=== PATIENT | male | born 1955 | race Caucasian/White ===

== ENCOUNTER 2019-12-01 08:00 | Outpatient (RCR) | payer MEDICAID, SELFPAY ==
--- NOTE | 2019-11-22 15:01 | MHC.PT.OD ---
[facility] [place] [facility] [place] [facility] [place] [facility] [address] [place] [address] [phone] F: [phone] F: [phone] F: [phone] F: [phone] Physical Therapy Daily Note Diagnosis: Date of Surgery: NA Date of Evaluation: 10/07/19 Treatments to Date: 10 Cancellations to Date: 2 No Shows to Date: 1 Authorized Visits: 20 Insurance End Date: 09/22/20 Precautions/ Contraindications:PMHx: DM Medications: shingrix, freestyle lite meter, lancets and test strips, glipzide, metformin, ibprofen, cyclobenzaprine HCL, flexeril, advil Subjective: Patient reporting that he is feeling better today. He reports some sciatic pain on the L buttock but this had improved. His neck and lumbar symptoms are feeling better with only a little discomfort. He continues to feel better in flexion. Pain Score: 4 Pain Location: Lumbar central Objective Flowsheet: Tests & Measures Exercises Stepper: 10 mins, hills 3.0, seat #15 and arms #4 Standing: RTB rows with core stab and hip hinge for lumbar spine, ed on cuing to decrease elevation of upper traps 3x10 Standing: Functional squatting, UE support at EOM 3x10 Seated: Seated PB roll outs for lumbar flexion 3x10 Seated: pulleys for shoulder flexion (performed after stepper as he reported arm movements on the stepper irritated his upper back and neck) x3 mins Supine: Hip abduction 5 sec holds- mod vc/tc to reduce valsalva tendencies 1x15 Supine: HL core stab w alt LEs/UEs (dying bug) 1x15 Side lying: B clamshells 1x15 IASTM #9 along lumbar/thoracic paraspinals scanning and fanning Ed and applied I strips TET to thoracolumbar paraspinals MM for tissue ease and postural feedback, skin integ and light touch WNL. Modalities Assessment: Patient has been slow to progress. Continues to require cuing for form throughout the session for proper posture, exercise form and sets/reps. Does appear to be getting better with PT. EVAL: Examination reveals consistent pain that ranges from about 6/10 to a 10/10 with increased activity or prolonged positioning, TTP over lumbar spine L2-4, pain with trunk ROM and hamstring length, decreased muscle strength at core /back, altered posture and gait. He is independent with all ADLS but has some pain. 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 He reports cervical roll from chiro but is not currently doing any exercises. He is a good candidate for PT based on age, goals, physical impairments and functional limitations. He would benefit from therapy to decrease pain, improve ROM, increase muscle strength, postural correction and functional training. Plan is to focus on lower back for first 7 visits, reassess and plan to tx the upper back, neck and arm. PT Plan: Ther-ex for ROM and strengthening, functional training - cervical and lumbar depending on how he feels Discharge Today? 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
== END 2019-12-28 10:41 | disposition home or self-care (01) ==
LOC: HO.PTCHIC 08:00
PROVIDERS: PCP Internal Medicine; Visit Provider Internal Medicine
DX: M54.42 Lumbago with sciatica, left side (principal)
CPT/HCPCS: 97110; 97140

== ENCOUNTER 2019-12-28 07:32 | Day surgery (SDC) | payer MEDICAID, SELFPAY ==
[2019-12-23 15:49] VITALS: BMI 28.4
--- NOTE | 2019-12-27 12:42 | HO.ANESPROP2 ---
Documented by User: Shivani Velázquez 12/27/19 12:44 HPI - Anesthesia Eval Consult details Narrative: 64yo M for Colonoscopy [facility] Past Medical History Medical History Back pain Diabetes Social History Social History Alcohol intake: former Smoking Status: Never smoker Use of substances other than those prescribed or required for medical reasons: No Advance Directives: No Advance Directives Information Provided: No Advance Directives on File: No Meds Allergies Allergy/AdvReac Type Severity Reaction Status Date / Time No Known Allergies Allergy Verified 12/23/19 15:41 [No Known Allergies*] Home Medications Medication Instructions Recorded Confirmed Type aspirin [Aspir-81] 81 mg PO DAILY 12/23/19 12/23/19 History glipizide 5 mg PO DAILY 12/23/19 12/23/19 History metformin 1,000 mg PO DAILY 12/23/19 12/23/19 History Exam Exam Date and Time: December 27, 2019 1242 Height,Weight and Vital Signs: Height 5 ft 6 in Weight 79.832 kg Pertinent Lab Results Pertinent Lab Results: Laboratory Tests 11/14/19 11/14/19 20:33 20:33 WBC 7.8 Hgb 14.7 Hct 43.0 Plt Count 245 Sodium 140 Potassium 4.1 Chloride 105 BUN 21 H Creatinine 0.92 Assessment and Plan Assessment Anesthesia Assessment: Chart Reviewed Documented by User: Freda Latham 12/28/19 08:13 [facility] Past Medical History Medical History Back pain Diabetes Social History Social History Alcohol intake: former Smoking Status: Never smoker Use of substances other than those prescribed or required for medical reasons: No Advance Directives: No Advance Directives Information Provided: No Advance Directives on File: No Meds Allergies Allergy/AdvReac Type Severity Reaction Status Date / Time No Known Allergies Allergy Verified 12/23/19 15:41 [No Known Allergies*] Home Medications Medication Instructions Recorded Confirmed Type aspirin [Aspir-81] 81 mg PO DAILY 12/23/19 12/23/19 History glipizide 5 mg PO DAILY 12/23/19 12/23/19 History metformin 1,000 mg PO DAILY 12/23/19 12/23/19 History Exam Airway Mallampati Class: II TM Dist: >3cm Neck ROM: Full Assessment and Plan Assessment Anesthesia Assessment: Anesthesia Plan Discussed and Chart Reviewed Final Anesthetic Review NPO: Yes ASA Class: II Final Preanesthetic Review: No Changes in Pt Med Stat, Meds/Allgs Chart Reviewed, Consent Obtained/Reviewed and Anes Risks/Benef Reviewed Patient Risk: Low Procedure Risk: Low Assessment/Block/Sedation in SS: Assess/Block/Sedation-SS Anesthetic Plan Anesthetic Plan: GA Disposition: Standard PACU
[2019-12-28 07:51] LABS: Glucose, Whole Blood 148 mg/dL (60-115)
[2019-12-28 07:52] VITALS: BP 148/83; PULSE 86; RESP 16; TEMP 36.5; O2SAT 96
[2019-12-28] MEDS: Lactated Ringers 1,000 ML 100 ML IVCONT (08:08)
--- NOTE | 2019-12-28 08:43 | P.HPSUR_ITS ---
Pre-Procedural Eval Section B Chief Complaint: SCREENING Relevant Family History (Specify if Yes): No Relevant Social History: None Present Medications: see Short Stay Collaborative assessment Medical History: Significant History (DM) History of Previous Operations: No relevant previous surgery Allergies: Allergies Allergy/AdvReac Type Severity Reaction Status Date / Time No Known Allergies Allergy Verified 12/23/19 15:41 [No Known Allergies*] Review of Systems Sugical H&P ROS: Negative: Constitution, Cardiovascular, Respiratory, Neurological, Psychiatric, Hem-Onc, Allergic/Immunologic, Gastrointestinal, Genitourinary, Musculoskeletal, Integumentary, Endocrine and Eyes/E ars/Nose/Throat Exam Surgical H&P Exam: Normal: HEENT, Normal: Heart, Normal: Lungs, Normal: Extremities, Normal: Abdomen, Normal: Skin and Normal: Neurological Plan Diagnosis/Plan: Unchanged Patient has been examined and remains a candidate for the planned procedure
--- NOTE | 2019-12-28 08:53 | P.OP_ITS ---
Operative Note Operative Note Narrative: Operative Information Procedure Description: Colonoscopy COLONOSCOPY Instrument: Olympus variable stiffness pediatric scope 190L Colonoscopy Monitoring: Vital signs and clinical assessment, continuous EKG monitoring, Pulse oximetry, Carbon Dioxide monitoring and blood pressure monitoring were done throughout the procedure. Colon withdrawal time was 8 minutes. Procedure: The patient was placed in the left lateral decubitis position and pre-procedure medications were administered. After a digital rectal examination of the ano-rectum, the video colonoscope was inserted into the rectum and advanced through the colon to the cecum/TI. The colonoscope was slowly withdrawn in a retrograde panoramic fashion and the colon mucosa was carefully examined including a retroflexed view of the rectum. Findings and interventions are described below. Procedure Difficulty:easy Findings: Terminal Ileum-normal Cecum:normal Ascending Colon: normal Transverse Colon -normal Descending Colon:normal Sigmoid Colon: normal Rectum: Retroflexion with moderate sized internal hemorrhoids, grade II Anorectum - internal hemorrhoids seen at anal verge Colon preparation: [place] Bowel Preparation Scale Right colon; 2 Transverse colon: 3 Left colon; 3 (0 = Unprepared colon segment with mucosa not seen due to solid stool that cannot be cleared. 1 = Portion of mucosa of the colon segment seen, but other areas of the colon segment not well seen due to staining, residual stool and/or opaque liquid. 2 = Minor amount of residual staining, small fragments of stool and/or opaque liquid, but mucosa of colon segment seen well. 3 = Entire mucosa of colon segment seen well with no residual staining, small fragments of stool or opaque liquid) Impression and Post Procedure Diagnosis: internal hemorrhoids Plan: High fiber diet leaflet Avoid straining at stool, epsom salts and sitz bath prn, anusol supps or cream prn Repeat Colonoscopy in 10 years or earlier if clinically indicated Above findings were reviewed with the patient and relevant handouts were provided if indicated.
--- NOTE | 2019-12-28 08:53 | PM.OP ---
Brief Operative Note Date of procedure: 12/28/19 Pre-op diagnosis: colon screen Post-op diagnosis: same Procedure: see op note Surgeon: Joann Torres MD Anesthesia: MAC Estimated blood loss (mL): 0 Condition: stable Disposition: PACU
[2019-12-28 09:20] VITALS: BP 97/68; PULSE 87; RESP 16; TEMP 36.5; O2SAT 98
[2019-12-28 09:35] VITALS: BP 112/75; PULSE 80; RESP 18; TEMP 36.5; O2SAT 96
--- NOTE | 2019-12-28 10:00 | HO.POSTANES ---
Post Anesthesia Evaluation Post Anesthesia Evaluation Vital Signs: Vital Signs Temp Pulse Resp BP Pulse Ox 12/28/19 09:35 97.7 F 80 18 112/75 96 12/28/19 09:20 97.7 F 87 16 97/68 98 12/28/19 07:52 97.7 F 86 16 148/83 H 96 Anesthesia: General (tiva) Mental Status: Awake Pain Control: Satisfactory Nausea/Vomiting: None Hydration: Adequate Anesthesia-Related Issues: No Anes. Related Issues
== END 2019-12-28 10:08 | disposition home or self-care (01) ==
PROVIDERS: PCP Internal Medicine; Visit Provider Internal Medicine Gastroenterology
PROC: 0DJD8ZZ Inspection of Lower Intestinal Tract, Via Natural or Artificial Opening Endoscopic (ICD-10-PCS; CPT 45378; principal; 2019-12-28 13:40)
DX: Z12.11 Encounter for screening for malignant neoplasm of colon (principal); K64.1 Second degree hemorrhoids; E11.9 Type 2 diabetes mellitus without complications; Z79.84 Long term (current) use of oral hypoglycemic drugs; Z79.82 Long term (current) use of aspirin
CPT/HCPCS: 45378; 82947

== ENCOUNTER → 2020-01-30 10:52 | Outpatient (BNVA) | payer MEDICAID, SELFPAY | PROVIDERS: PCP Internal Medicine; Referring Provider Internal Medicine; Visit Provider Physician Assistant | DX: Z76.89 Persons encountering health services in other specified circumstances (principal) ==

== ENCOUNTER 2020-03-03 06:22 | Emergency (ER) | payer MEDICAID, SELFPAY ==
[2020-03-03 06:29] VITALS: BP 138/87; PULSE 95; RESP 16; TEMP 37.1; O2SAT 97; BMI 29.2
--- NOTE | 2020-03-03 08:06 | XR_ITS ---
EXAMINATION: XR CHEST CLINICAL INFORMATION: Back pain COMPARISON: Previous chest x-ray October 2019 TECHNIQUE: 2 views of the chest were obtained. FINDINGS: No significant abnormality is noted involving the heart, lungs, mediastinum, bony thorax or soft tissues. XR/XR chest 2V IMPRESSION: Unremarkable examination.
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
--- NOTE | 2020-03-03 08:13 | PC.NURSE ---
Plan for lab results and xray, however pain appears chronic in nature, pt reports pain is worse than normal but worse with movement and twisting and moving right arm.
[2020-03-03 08:16] LABS: MANUAL DIFF FLAG NO
[2020-03-03 08:18] LABS: Basophils Absolute Auto 0.1 X10*3/uL (0.0-0.2); Basophils Percent Auto 0.5 % (0-2); Eosinophils Absolute Auto 0.4 X10*3/uL (0.0-0.4); Eosinophils Percent Auto 4.3 % (0-4); Hematocrit 45.4 % (42-52); Hemoglobin 15.6 g/dl (14.0-18.0); Imm Gran Abs Auto 0.03 X10*3/uL (0.00-0.03); Imm Gran Pct Auto 0.3 % (0.0-0.4); Lymphocytes Absolute Auto 1.7 X10*3/uL (1.2-4.9); Lymphocytes Percent Auto 17.4 % (20-40); Mean Corpuscular HGB Conc 34.4 g/dl (31.0-36.0); Mean Corpuscular Hemoglobin 30.6 pg (27.0-33.0); Mean Corpuscular Volume 89.2 fL (80-98); Monocytes Absolute Auto 0.9 X10*3/uL (0.1-1.2); Monocytes Percent Auto 9.4 % (2-11); Neutrophils Absolute Auto 6.8 X10*3/uL (2.0-8.3); Neutrophils Percent Auto 68.1 % (45-73); Platelet Count 230 X10*3/uL (160-400); Red Blood Count 5.09 X10*6/uL (4.60-5.80); Red Cell Distribution Width 11.6 % (11.0-16.0)
[2020-03-03 08:33] LABS: D Dimer < 200 NG/ML
[2020-03-03 08:45] LABS: Anion Gap 14 (12-20); Blood Urea Nitrogen 30 mg/dL (9-16); Carbon Dioxide 25 mmol/L (22-29); Chloride 103 mmol/L (96-108); Creatinine Clr Calc Pharmacy 66.1; Estimated Glomerular Filt Rate > 60; Glucose Random 189 mg/dL (60-115); Potassium 4.2 mmol/l (3.3-5.1); Sodium 138 mmol/L (135-145)
== END 2020-03-03 09:30 | disposition home or self-care (01) ==
PROVIDERS: Emergency Provider Emergency Medicine Emergency Medical Services; PCP Internal Medicine
DX: M54.6 Pain in thoracic spine (principal); M25.511 Pain in right shoulder; R05 Cough; Z79.899 Other long term (current) drug therapy
CPT/HCPCS: 36415; 71046; 80048; 85025; 85379; 99283; 99284

== ENCOUNTER 2020-03-06 08:35 | Outpatient (REF) | payer MEDICAID, SELFPAY ==
--- NOTE | 2020-03-06 08:37 | MR_ITS ---
EXAMINATION: MR LUMBAR SPINE WITHOUT CONTRAST CLINICAL INFORMATION: Lumbago with sciatica, left-sided. COMPARISON: Plain films of the lumbar spine 09/06/2019. TECHNIQUE: MRI of the lumbar spine was obtained using routine sequences without contrast. FINDINGS: VERTEBRAL BODIES AND PARASPINAL STRUCTURES: There is a levoscoliosis. There is narrowing of intervertebral disc height at L4-L5, and there are mild degenerative endplate contour changes with predominantly fatty signal centrally and toward the right. Vertebral body heights are maintained. No fractures are demonstrated. Overall, marrow signal is homogenous. The infrarenal abdominal aorta is slightly tortuous. No aneurysms are demonstrated. The visualized pelvic structures are unremarkable. CONUS MEDULLARIS AND CAUDA EQUINA: Normal, terminating at the level of L1. The lower thoracic spinal cord appears normal. The cauda equina nerve roots and filum terminale appear normal. SPINAL LEVELS: L1-L2: The facet joints appear normal bilaterally. Disc contour is normal. There is no central stenosis or foraminal narrowing. L2-L3: There is mild bilateral facet arthropathy with ligamenta flava hypertrophy. There is an equivocal 3 cm synovial cyst developing anteromedially on the left which measures 3.5 mm (image 9/26, sequence 6); there is no distortion of the thecal sac at present. There is a diffuse disc bulge. There is no foraminal nerve root impingement. There is mild narrowing of the subarticular recesses. There is no central stenosis. L3-L4: There is moderate bilateral facet arthropathy with ligamenta flava hypertrophy and small facet joint effusions. There is a synovial cyst dorsal to the right facet joint. There is a mild diffuse disc bulge, with a left foraminal disc protrusion extending far laterally with impingement on the extraforaminal left L3 nerve root. There is no central stenosis. L4-L5: There is moderate bilateral facet arthropathy with right greater than left ligamentum flavum hypertrophy. There is a broad-based posterior disc protrusion extending into the neural foramina bilaterally, more prominently on the right and there is impingement on the exiting right L4 nerve root. There is mild impingement on the exiting left L4 nerve root inferiorly. There is narrowing of the right greater than left subarticular recesses with impingement traversing L5 nerve roots. There is moderate central stenosis. L5-S1: There is mild bilateral facet arthropathy. There is a small posterior disc protrusion with minimal distortion of the ventral thecal sac. The neural foramina are patent. There is no central stenosis. MR/MR lumbar spine wo con IMPRESSION: 1. At L4-L5 there is moderate facet arthropathy and there is a broad-based posterior disc protrusion, more prominent on the right with impingement on the exiting right L4 nerve root. There is narrowing of the right greater than left subarticular recesses with impingement on the traversing L5 nerve roots. There is moderate central stenosis. 2. At L3-L4 there is facet arthropathy and there is a diffuse disc bulge, with a left foraminal disc protrusion extending far laterally. There is impingement on the extraforaminal left L3 nerve root. 3. At L2-L3 there is an equivocal synovial cyst developing anteromedially on the left, without significant mass effect at present. There is mild narrowing of the subarticular recesses.
== END 2020-03-06 08:36 | disposition home or self-care (01) ==
LOC: HO.MRI 08:35
PROVIDERS: Visit Provider Internal Medicine
DX: M54.42 Lumbago with sciatica, left side (principal)
CPT/HCPCS: 72148

== ENCOUNTER 2020-08-07 10:00 | Outpatient (RCR) | payer MEDICAID, SELFPAY | END 2020-09-07 15:02 | disposition home or self-care (01) | LOC: HO.PT 10:00 | PROVIDERS: PCP Internal Medicine; Visit Provider Internal Medicine | DX: M54.42 Lumbago with sciatica, left side (principal) | CPT/HCPCS: 97014; 97110; 97112; 97140; 97161; 97530 ==

== ENCOUNTER 2020-10-05 07:40 | Outpatient (REF) | payer MEDICAID, SELFPAY ==
--- NOTE | ~2020-10-05 | XR_ITS ---
EXAMINATION: XR CERVICAL SPINE CLINICAL INFORMATION: Pain left shoulder. COMPARISON: None TECHNIQUE: 6 views of the cervical spine, inclusive of flexion and extension views, were obtained. FINDINGS: There is mild stranding of cervical lordosis. The vertebral heights and alignment is normal. There is loss of C5-C6, C6-C7 disc heights with moderate ventral spondylosis no visible acute fracture, dislocation or lytic process seen. The paravertebral vertebral soft tissues are normal. There is mild narrowing of right C5-C6 and C6-C7 neural foramina from uncovertebral hypertrophic changes. The prevertebral soft tissues are normal. XR/XR cervical spine 5V IMPRESSION: Degenerative disc changes with moderate ventral spondylosis C5-C6 and C6-C7 disc levels.
== END 2020-10-05 07:41 | disposition home or self-care (01) ==
LOC: HO.XRAY 07:40
PROVIDERS: PCP Internal Medicine; Visit Provider Internal Medicine
DX: M25.512 Pain in left shoulder (principal)
CPT/HCPCS: 72050

== ENCOUNTER 2020-10-16 20:18 | Emergency (ER) | payer MEDICAID, SELFPAY ==
--- NOTE | ~2020-10-16 | CT_ITS ---
EXAMINATION: CT CERVICAL SPINE WITHOUT CONTRAST CLINICAL INFORMATION: Left-sided pain COMPARISON: Radiographs 10/05/2020 TECHNIQUE: Multidetector CT scan of cervical spine with multiplanar reconstructions This CT examination was performed using dose optimization techniques as appropriate, variously including the following: *Automated exposure control *Adjustment of mA and/or kV according to patient size (this includes techniques or standardized protocols for targeted exams where dose is matched to indication/reason for exam; i.e. extremities or head) *Use of iterative reconstruction technique DLP: 565 mGy-cm FINDINGS: Reversal of the normal cervical lordosis again noted. No prevertebral soft tissue swelling. Mildly severe spondylosis minimal lower cervical spine. No acute fracture subluxation. Spinal levels: C2-C3: Minor posterior annular disc bulging. C3-C4: More pronounced posterior disc bulging resulting in early central canal narrowing C4-C5: Suspect more pronounced asymmetric disc bulging/herniation resulting in moderate central canal narrowing and pronounced right-sided neuroforaminal stenosis. C5-C6: More pronounced disc aspect complex asymmetric to the right with early disc space narrowing resulting in relative pronounced right-sided neuroforaminal stenosis and moderate central canal narrowing. C6-C7: Similar degree of disc space narrowing with more pronounced right greater than left foraminal disc osteophyte complexes resulting in relatively pronounced neuroforaminal stenosis and mild central canal narrowing. C7-T1: Normal. CT/CT cervical spine wo con IMPRESSION: Advanced spondylosis as above. Recommend MRI for further detail assessment of the disc disease and resulting central and neuroforaminal stenosis..
[2020-10-16 20:32] VITALS: BP 143/86; PULSE 80; RESP 16; TEMP 36.6; O2SAT 98; BMI 27.7
--- NOTE | 2020-10-16 21:56 | ECG_ITS ---
Test Reason : BACK PAIN Blood Pressure : / mmHG Vent. Rate : 061 BPM Atrial Rate : 061 BPM P-R Int : 160 ms QRS Dur : 082 ms QT Int : 412 ms P-R-T Axes : 057 074 063 degrees QTc Int : 414 ms Normal sinus rhythm Normal ECG When compared with ECG of 14-NOV-2019 20:27, No significant change was found Referred By: Stella Tiwari Electronically Signed By:LAUREN GONZALEZ
--- NOTE | 2020-10-16 22:15 | ED.BACK ---
HPI - Back Pain/Injury General Chief Complaint: Back Pain/Injury Stated Complaint: back pain Time Seen by Provider: 10/16/20 21:56 Source: patient Mode of arrival: ambulatory History of Present Illness HPI Narrative: 65-year-old male with a past medical history of back pain, diabetes, presenting to the ED complaining of left-sided neck pain radiating down left arm times months with associated tingling/paresthesias. Admits pain worse with movement of head/neck and arm. Admits pain improves with Motrin. Reports has been evaluated for this pain had negative x-rays. Admits pain radiate to jaw today. Denies visual change/loss, headache, weakness, CP/SOB, nausea/vomiting, trauma/fall or injury, headache Related Data Home Medications Medication Instructions Recorded Confirmed aspirin 81 mg tablet,delayed 81 mg PO DAILY 12/23/19 01/30/20 release glipizide 5 mg tablet 5 mg PO DAILY 12/23/19 01/30/20 metformin 1,000 mg tablet 1,000 mg PO DAILY 12/23/19 01/30/20 Previous Rx's Medication Instructions Recorded ibuprofen 200 mg capsule (Motrin 200 mg PO Q6H PRN #20 cap 03/03/20 IB) acetaminophen 500 mg tablet 500 mg PO Q6H PRN #20 tab 10/16/20 (Tylenol Extra Strength) cyclobenzaprine 5 mg tablet 5 mg PO Q8H PRN 5 Days #14 tab 10/16/20 lidocaine 5 % topical patch 1 patch TOPICAL DAILY PRN #30 ea 10/16/20 (Lidoderm) MDD remove after 12 hours naproxen 500 mg tablet 500 mg PO BID PRN 10 Days #20 tab 10/16/20 prednisone 20 mg tablet 40 mg PO DAILY 5 Days #10 tab 10/16/20 Allergies Allergy/AdvReac Type Severity Reaction Status Date / Time No Known Allergies Allergy Verified 12/23/19 15:41 [No Known Allergies*] Review of Systems Review of Systems: Constitutional: No Fever, No Chills, No Fatigue, No Malaise ENT/Mouth: No Ear Pain, No sore throat Eyes: No Eye Pain, No Swelling, No Redness, No Discharge, No Vision Changes Cardiovascular: No Chest Pain, No SOB, No Dyspnea on Exertion, No Orthopnea, No Edema, No Palpitations Respiratory: No Cough, No Dyspnea Gastrointestinal: No Nausea, No Vomiting, No Abdominal pain Genitourinary: No Dysuria, No Urinary Flow Changes Musculoskeletal: + joint pain, No Myalgias, No Joint Swelling Skin: No Skin Lesions, No rash Neuro: No Weakness, + Numbness, + Paresthesias, No Dizziness, No Headache Yes all other systems are reviewed and are negative Neurologic: Denies Sensory deficit (Neuro) [facility] Past Medical History Attestation statement: The following information was validated with the patient. Medical History Back pain Diabetes Social History Social History Alcohol intake: former Advance Directives: No Advance Directives Information Provided: Yes Physical Exam Vital Signs: Vital Signs: Last Vital Signs Temp 97.8 F 10/16/20 20:32 Pulse 80 10/16/20 20:32 Resp 16 10/16/20 20:32 BP 143/86 H 10/16/20 20:32 Pulse Ox 98 10/16/20 20:32 Body Mass Index 27.7 Const: General: cooperative and healthy appearing Orientation/consciousness: patient oriented x3 Limitations: no limitations HENMT: Head: Yes normal to inspection Ears: hearing grossly normal bilaterally General nose exam: Normal external nose present Face and sinus: Yes normal facial exam Throat: Yes posterior oropharynx normal Eyes: General: appearance normal, both eyes and all related structures Pupils: Equal, round and reactive pupils present EOM: EOMs intact bilaterally Neck: Other: No midline cervical spinous tenderness/step-off or deformity. + left-sided MSK/paraspinal tenderness and left trapezius muscle tenderness. Pain elicited on neck movement. Full range of motion to neck intact. No meningeal signs. Neck: Yes normal visual inspection, Yes trachea midline, Yes supple and No anterior neck swelling Resp: Effort & Inspection: normal respiratory effort and no respiratory distress Cardio: Rate: regular rate Peripheral pulses: radial pulses present Back/Spine/Pelvis: Other: No midline thoracic/lumbar spinous tenderness Skin: Rashes: no rashes Wounds: no wounds Neuro: General: patient oriented x3, tone normal and moves all extremities Cranial nerves: Yes Equal, round and reactive pupils present Gait exam (Neuro): Normal gait present Motor exam (neuro): 5/5 motor strength present throughout Sensory Exam: No Sensory deficit (Neuro) Extrem: General: Yes normal to inspection Course Course Course Narrative: --CT cervical spine wo con IMPRESSION: Advanced spondylosis as above. Recommend MRI for further detail assessment of the disc disease and resulting central and neuroforaminal stenosis. >> results discussed with patient with manager photo. Will initiate Prednisone 40mg x 5 days and have patient follow-up with his PCP for outpatient MRI MDM - Back Pain/Injury MDM Narrative Medical decision making narrative: 65-year-old male with a past medical history of back pain, diabetes, presenting to the ED complaining of left-sided neck pain radiating down left arm times months with associated tingling/paresthesias. On exam VSS, NAD/well-appearing, no midline spinous tenderness throughout, no red flag symptoms. X-ray from 10/05/20 showing spondylosis. Likely spinal stenosis/degenerative changes/MSK pain, low concern for cord compression. Low concern for cervical dissection/aneurysm Plan: Cervical CT Medical Records Attestation: I reviewed the patient's medical records. Lab Data Attestation: I reviewed the patient's lab results. ECG Data Attestation: I personally reviewed and interpreted this ECG as follows: ECG interpretation date: 10/16/20 ECG interpretation time: 22:18 Interpretation: EKG normal sinus rhythm with a rate of 61. Nonischemic/no STEMI Discharge Plan Discharge Clinical Impression: Cervical spondylolysis Patient Disposition: Home, Self-Care Instructions: Cervical Radiculopathy (ED) Prescriptions: New prednisone 20 mg tablet 40 mg PO DAILY 5 Days Qty: 10 RF: 0 acetaminophen [Tylenol Extra Strength] 500 mg tablet 500 mg PO Q6H PRN (Reason: pain or fever) Qty: 20 RF: 0 lidocaine [Lidoderm] 5 % adhesive patch,medicated 1 patch topical DAILY MDD remove after 12 hours PRN (Reason: pain) Qty: 30 RF: 0 naproxen 500 mg tablet 500 mg PO BID PRN (Reason: pain) 10 Days Qty: 20 RF: 0 cyclobenzaprine 5 mg tablet 5 mg PO Q8H PRN (Reason: pain (scale score 7-10)) 5 Days Qty: 14 RF: 0 No Action ibuprofen [Motrin IB] 200 mg capsule 200 mg PO Q6H PRN (Reason: pain) Qty: 20 RF: 0 aspirin [Aspir-81] 81 mg Tablet,Delayed Release (Dr/Ec) 81 mg PO DAILY RF: 0 metformin 1,000 mg Tablet 1,000 mg PO DAILY RF: 0 glipizide 5 mg Tablet 5 mg PO DAILY RF: 0 Referrals: Usman Vargas MD [Primary Care Provider] - 2 days
[2020-10-16] MEDS: Ketorolac Tromethamine 15 MG/ML VIAL 30 MG IM (22:19)
[2020-10-16] MEDS: Cyclobenzaprine HCl 10 MG TABLET PO (22:19)
== END 2020-10-16 23:17 | disposition home or self-care (01) ==
PROVIDERS: Emergency Provider Internal Medicine; PCP Internal Medicine
DX: M43.02 Spondylolysis, cervical region (principal); E11.9 Type 2 diabetes mellitus without complications
CPT/HCPCS: 72125; 93005; 96372; 99283; 99284; J1885

== ENCOUNTER 2020-11-07 10:00 | Outpatient (RCR) | payer MEDICAID, SELFPAY | END 2020-11-14 10:32 | disposition home or self-care (01) | LOC: HO.PT 10:00 | PROVIDERS: PCP Internal Medicine; Visit Provider Internal Medicine | DX: M25.512 Pain in left shoulder (principal); M54.42 Lumbago with sciatica, left side | CPT/HCPCS: 97110; 97112; 97161 ==

== ENCOUNTER 2020-12-10 17:40 | Outpatient (REF) | payer MEDICAID, SELFPAY ==
--- NOTE | ~2020-12-10 | MR_ITS ---
EXAMINATION: MR CERVICAL SPINE WITHOUT CONTRAST CLINICAL INFORMATION: 65-year-old with cervicalgia. COMPARISON: 10/16/2020 CT TECHNIQUE: MRI of the cervical spine was obtained using routine sequences without contrast. FINDINGS: Alignment: There is lordotic loss noted with a slight reversal of the normal curvature, similar to previous CT. Trace retrolisthesis noted at C6-C7, unchanged. Craniocervical Junction/C1-C2 Articulations: Intact and aligned. Visualized Intracranial Structures: Within normal limits. Vertebral Bodies: Normal height. Disc Spaces and Endplates: Gscuboru-hu-mrkiaw disc space height loss at C5-C6 and severe disc space height loss at C6-C7 noted, similar to previous CT. Tiny Schmorl's nodes noted with moderate spondylosis at these levels. There is czup-fl-whdjrmgw spondylosis also noted at C4-C5. Bone Marrow: No bone marrow edema. Type II marrow signal changes along the endplates noted at C5-C6. C2-C3: Small central to left central disc protrusion with minimal indentation of the ventral thecal sac without spinal cord impingement. Ligamentum flavum thickening is noted without significant central spinal canal stenosis. Minor facet arthropathy is noted on the left with mild left-sided neural foraminal narrowing. C3-C4: Central disc herniation noted, with effacement of the ventral dural sac abutting the ventral aspect of the spinal cord without tico cord impingement. Bilateral uncovertebral spurring is noted with minor facet arthropathy, with bmzxtuom-pi-bdataq bilateral neural foraminal stenosis. Mild central spinal canal stenosis noted. C4-C5: Broad-based disc protrusion asymmetric to the right with flattening of the dural sac without cord impingement. Mild spinal canal stenosis. Bilateral uncovertebral spurring is noted with moderate left-sided facet arthropathy. Lprvbwlp-sg-wvqefj right-sided and severe left-sided neural foraminal stenosis is noted. C5-C6: Broad-based posterior disc-osteophyte complex asymmetric to the right, with moderate flattening of the dural sac without cord impingement. No significant central spinal canal stenosis. There is uncovertebral arthrosis, right more than left, with moderate bilateral facet arthropathy. Severe right-sided and bjzuabes-za-ocncpl left-sided neural foraminal stenosis is noted. C6-C7: Posterior disc-osteophyte complex noted with mwab-bp-uzkvqhrp flattening of the central dural sac without cord impingement. There is ligamentum flavum thickening and mild central canal stenosis. There is bilateral uncovertebral spurring and ccxn-vo-deojvqxk bilateral facet arthropathy with severe right-sided and nxuhawnt-ie-yuyxyn left-sided neural foraminal stenosis. C7-T1: No disc herniation. Minor right-sided and voyw-kd-twdgyaxv left-sided facet arthrosis. No significant canal or neural foraminal stenosis. The cervical and visualized upper thoracic spinal cord is normal in morphology, caliber and signal intensity. MR/MR cervical spine wo con IMPRESSION: 1. Mild lordotic reversal with multilevel DDD, spondylosis and DJD, as described above. 2. Multilevel predominately central disc herniations and disc-osteophyte complexes, as described above, without spinal cord impingement. Mild spinal canal stenosis noted at C3-C4, C4-C5 and C6-C7. 3. Multilevel bilateral bony neural foraminal stenosis, as discussed above, hhpnpujc-pp-wjlqba in degree.
== END 2020-12-10 17:41 | disposition home or self-care (01) ==
LOC: HO.MRI 17:40
PROVIDERS: Visit Provider Internal Medicine
DX: M54.2 Cervicalgia (principal)
CPT/HCPCS: 72141

== ENCOUNTER 2021-02-12 11:00 | Outpatient (RCR) | payer MEDICAID, SELFPAY | END 2021-03-04 10:48 | disposition home or self-care (01) | LOC: HO.PT 11:00 | PROVIDERS: PCP Internal Medicine; Visit Provider Internal Medicine | DX: M54.2 Cervicalgia (principal) | CPT/HCPCS: 97110; 97112; 97140; 97150; 97162 ==

== ENCOUNTER 2021-02-18 13:18 | Emergency (ER) | payer MEDICAID, SELFPAY ==
[2021-02-18 14:51] VITALS: BP 139/88; PULSE 102; RESP 14; TEMP 37.6; O2SAT 98; BMI 29.2
[2021-02-18 15:17] LABS: COVID-19 Test Positive (Negative)
--- NOTE | 2021-02-18 15:34 | ED.GENADULT ---
HPI - General Adult General Chief complaint: General Medical Stated complaint: body aches,cough,diarrhea Time Seen by Provider: 02/18/21 15:34 Source: patient Mode of arrival: ambulatory Limitations: no limitations History of Present Illness HPI narrative: 65-year-old male past medical history significant for dibates presents to the ED with headaches, cough and body aches x4 days . Patient tells me this feels like his typical headache, no vision changes or dizziness associated with it. He tells me his cough is nonproductive, and it is causing him discomfort to his throat. He does report generalized malaise and body aches. Progressively worsening over the past 4 days. He tells me he thinks he caught this from [facility] [employer] where he was celebrating the new year, patient tells me that he took his mask off at the club and he thinks he got it there. No shortness of breath or chest pain. Patient has two doses of vaccines. Onset (ago): day(s) (4) Location: head Radiation: non-radiation Severity: moderate Relieving factors: none Exacerbating factors: none Associated symptoms: cough, headaches, malaise and other (Sore throat) Treatments prior to arrival: none Related Data Home Medications Medication Instructions Recorded Confirmed aspirin 81 mg tablet,delayed 81 mg PO DAILY 12/23/19 01/30/20 release glipizide 5 mg tablet 5 mg PO DAILY 12/23/19 01/30/20 metformin 1,000 mg tablet 1,000 mg PO DAILY 12/23/19 01/30/20 Previous Rx's Medication Instructions Recorded ibuprofen 200 mg capsule (Motrin 200 mg PO Q6H PRN #20 cap 03/03/20 IB) acetaminophen 500 mg tablet 500 mg PO Q6H PRN #20 tab 10/16/20 (Tylenol Extra Strength) cyclobenzaprine 5 mg tablet 5 mg PO Q8H PRN 5 Days #14 tab 10/16/20 lidocaine 5 % topical patch 1 patch TOPICAL DAILY PRN #30 ea 10/16/20 (Lidoderm) MDD remove after 12 hours naproxen 500 mg tablet 500 mg PO BID PRN 10 Days #20 tab 10/16/20 prednisone 20 mg tablet 40 mg PO DAILY 5 Days #10 tab 10/16/20 Allergies Allergy/AdvReac Type Severity Reaction Status Date / Time No Known Allergies Allergy Verified 12/23/19 15:41 [No Known Allergies*] Review of Systems Review of Systems: Constitutional : No Fever, No Chills, positive fatigue, positive Malaise ENT/Mouth : positive sore throat, positive runny nose Eyes: No Discharge Cardiovascular : No Chest Pain, No SOB Respiratory : positive Cough, No Sputum Gastrointestinal : No Nausea, No Vomiting, No Diarrhea Genitourinary : No Dysuria, No Urinary Frequency Musculoskeletal : positive Myalgia Skin : No rash Neuro : No Headache Yes all other systems are reviewed and are negative [facility] Past Medical History Attestation statement: The following information was validated with the patient. Source: old records reviewed and nursing notes reviewed Medical History Back pain Diabetes Social History Social History Alcohol intake: former Physical Exam Vital Signs: Vital Signs: Last Vital Signs Temp 99.6 F 02/18/21 14:51 Pulse 102 H 02/18/21 14:51 Resp 14 02/18/21 14:51 BP 139/88 02/18/21 14:51 Pulse Ox 98 02/18/21 14:51 BMI result Body Mass Index 29.2 VSS Appearance: Alert.? Oriented X3.? No acute distress.? Head: Normocephalic, atraumatic, no step-offs or deformities Eyes: Pupils equal, round and reactive to light.? ENT: Pharynx normal.? Neck: Normal inspection.? Neck supple.? CVS: Normal heart rate and rhythm.? Pulses normal.? Respiratory: No respiratory distress.? Breath sounds normal.? Abdomen: Soft and nontender.? Skin: Skin warm and dry.? Normal skin color.? Normal skin turgor.? Extremities: No lower extremity edema.? No calf ttp. 5/5 strength to bilateral upper and lower extremities Back: No midline tenderness, no C-spine tenderness, full range of motion, no CVA tenderness bilaterally Neuro: Oriented X 3.? No motor deficit.? No sensory deficit. Course Reevaluation(s) Reevaluation #1: COVID positive. This time this is likely why patient is having the symptoms. His vital signs are stable, he appears well, nontoxic, hemodynamically stable. I feel comfortable discharge home with PCP follow-up. I have given him strict return precautions and have advised him to return with new or worsening symptoms. These have been outlined on discharge Time: 15:40 Medical Decision Making MDM Narrative Medical decision making narrative: 1535 65 yo M pmhx DM presents to emergency department with COVID like symptoms x4 days progressively worsening. Physical examination benign. Plan at this time is rapid COVID Medical Records Medical records reviewed: Yes I reviewed the patient's medical records. Lab Data Lab results reviewed: Yes I reviewed the patient's lab results. Labs: Lab Results 02/18/21 Range/Units 14:56 COVID-19 (JEANNIE) Positive A (Negative) COVID-19 Clin Com See Note Critical Care Time Critical Care Time Critical Care Time: No Discharge Plan Discharge Clinical Impression: COVID-19 Patient Disposition: Home, Self-Care Instructions: COVID-19 (Coronavirus Disease 2019) (ED) Additional Instructions: Take your medications as prescribed. If you were prescribed antibiotics today, it is important that you take your medication to their entirety, do not skip any doses, do not finish them early. Today you tested positive for COVID-19. Take Ibuprofen or Tylenol as needed for fevers or body aches. Quarantine for 7 days and ensure you wear a mask. After 7 days you should wear a mask for 3 days after that. Practice social distancing and good hand hygiene. Drink plenty of fluids. Follow-up with your primary care provider this week. Return to the emergency department with new or worsening symptoms. Such as fevers, chills, nausea, vomiting, chest pain, shortness of breath. In case of emergency call 911 You can purchase a pulse oximeter from your local pharmacy or grocery store, and monitor your oxygen saturation if it goes below 94% you should return to the emergency department for further evaluation. Prescriptions: No Action ibuprofen [Motrin IB] 200 mg capsule 200 mg PO Q6H PRN (Reason: pain) Qty: 20 RF: 0 aspirin [Aspir-81] 81 mg Tablet,Delayed Release (Dr/Ec) 81 mg PO DAILY RF: 0 metformin 1,000 mg Tablet 1,000 mg PO DAILY RF: 0 glipizide 5 mg Tablet 5 mg PO DAILY RF: 0 prednisone 20 mg tablet 40 mg PO DAILY 5 Days Qty: 10 RF: 0 acetaminophen [Tylenol Extra Strength] 500 mg tablet 500 mg PO Q6H PRN (Reason: pain or fever) Qty: 20 RF: 0 lidocaine [Lidoderm] 5 % adhesive patch,medicated 1 patch topical DAILY MDD remove after 12 hours PRN (Reason: pain) Qty: 30 RF: 0 naproxen 500 mg tablet 500 mg PO BID PRN (Reason: pain) 10 Days Qty: 20 RF: 0 cyclobenzaprine 5 mg tablet 5 mg PO Q8H PRN (Reason: pain (scale score 7-10)) 5 Days Qty: 14 RF: 0 Referrals: Usman Vargas MD [Primary Care Provider] - 2 days Stand Alone Forms: Work/School Release
== END 2021-02-18 17:46 | disposition home or self-care (01) ==
LOC: HO.ED 16:04
PROVIDERS: Emergency Provider Emergency Medicine; PCP Internal Medicine
DX: U07.1 COVID-19 (principal); E11.9 Type 2 diabetes mellitus without complications
CPT/HCPCS: 36415; 87635; 99283

== ENCOUNTER 2021-02-27 11:15 | Outpatient (REF) | payer MEDICAID, SELFPAY | END 2021-02-27 11:16 | disposition home or self-care (01) | LOC: HO.LAB 11:15 | PROVIDERS: Visit Provider Internal Medicine | DX: Z13.89 Encounter for screening for other disorder (principal) | CPT/HCPCS: C9803 ==

== ENCOUNTER 2021-02-27 11:20 | Outpatient (REF) | payer MEDICAID, SELFPAY | END 2021-02-27 11:21 | disposition home or self-care (01) | LOC: HO.LAB 11:20 | PROVIDERS: Visit Provider Internal Medicine | DX: Z13.89 Encounter for screening for other disorder (principal) ==

== ENCOUNTER → 2021-06-18 08:21 | Outpatient (RCR) | payer MEDICAID, SELFPAY ==
[2020-05-23 08:19] VITALS: BP 125/73; PULSE 98; O2SAT 97
== END | disposition home or self-care (01) ==
LOC: HO.PT 05-23 07:36
PROVIDERS: PCP Internal Medicine; Visit Provider Internal Medicine
DX: H81.13 Benign paroxysmal vertigo, bilateral (principal)
CPT/HCPCS: 95992; 97161

== ENCOUNTER 2023-04-14 08:57 | Outpatient (REF) | payer MEDICARE, MEDICAID, SELFPAY ==
[2023-04-14 14:48] LABS: Alanine Aminotransferase 15 U/L (0-40); Albumin Level 4.1 g/dL (3.5-5.0); Alkaline Phosphatase 51 U/L (39-117); Anion Gap 11 (12-20); Aspartate Amino Transferase 17 U/L (5-37); Bilirubin Total 0.6 mg/dL (0.0-1.0); Blood Urea Nitrogen 20 mg/dL (9-16); Carbon Dioxide 28 mmol/L (22-29); Chloride 102 mmol/L (96-108); Cholesterol 128 mg/dL (<200); Estimated Glomerular Filt Rate > 60; Glucose Random 99 mg/dL (60-115); HDL Cholesterol 40 mg/dL (>40); LDL Cholesterol Calculated 75 mg/dL (<100); Potassium 4.4 mmol/L (3.3-5.1); Sodium 137 mmol/L (135-145); Triglycerides 66 mg/dL (<150)
== END 2023-04-14 08:58 | disposition home or self-care (01) ==
LOC: HO.CHCLDS 08:57
PROVIDERS: Visit Provider Internal Medicine
DX: E11.9 Type 2 diabetes mellitus without complications (principal)
CPT/HCPCS: 36415; 80053; 80061

== ENCOUNTER 2024-01-08 19:41 | Emergency (ER) | payer OTHER, SELFPAY ==
--- NOTE | ~2024-01-08 | CT_ITS ---
EXAMINATION: CT HEAD WITHOUT CONTRAST CLINICAL INFORMATION: Vertigo. COMPARISON: None available. TECHNIQUE: Contiguous axial imaging was performed from the skull base to vertex without intravenous administration of contrast. This CT examination was performed using dose optimization techniques as appropriate, variously including the following: *Automated exposure control. *Adjustment of mA and/or kV according to patient size (this includes techniques or standardized protocols for targeted exams where dose is matched to indication/reason for exam; i.e. extremities or head). *Use of iterative reconstruction technique. DLP: 664 mGy-cm FINDINGS: There is no evidence of acute intracranial hemorrhage or edematous territorial infarction. Andrade-white matter differentiation is preserved. A few foci of hypoattenuation in the periventricular and deep white matter are consistent with mild microangiopathy. Proportional prominence of the ventricles and sulcal spaces without evidence of obstructive hydrocephalus. No abnormal mass effect or midline shift. No extra-axial fluid collections. Calcific atherosclerotic disease of the intracranial internal carotid and vertebral arteries. No hyperdense vessel sign. No acute soft tissue or osseous abnormalities. Mild mucosal thickening of the paranasal sinuses. The mastoid air cells and middle ear cavities are clear. Mild degenerative arthropathy of the left temporomandibular joint. CT/CT head/brain wo IV con IMPRESSION: 1. No evidence of acute intracranial hemorrhage or edematous territorial infarction. 2. Mild underlying microangiopathy and generalized cerebral volume loss. Electronically signed by: Omkar Alas DO 01/09/2024 12:11 [place] [facility] [place]
[2024-01-08 19:44] VITALS: BP 162/98; PULSE 82; RESP 16; TEMP 36.9; O2SAT 98; BMI 28.2
--- NOTE | 2024-01-08 19:44 | ECG_ITS ---
Test Reason : DIZZINESS Blood Pressure : / mmHG Vent. Rate : 080 BPM Atrial Rate : 080 BPM P-R Int : 160 ms QRS Dur : 084 ms QT Int : 368 ms P-R-T Axes : 072 057 072 degrees QTc Int : 424 ms Normal sinus rhythm Normal ECG When compared with ECG of 16-OCT-2020 22:18, No significant change was found Referred By: Santana Benson Electronically Signed By:DAVID HOPPER MD
--- NOTE | 2024-01-08 19:44 | ED.GENADULT ---
HPI - General Adult General Chief complaint: Nausea/Vomiting/Diarrhea Stated complaint: dizziness, vomiting x5 days Time Seen by Provider: 01/08/24 20:50 Source: patient Mode of arrival: ambulatory Limitations: no limitations History of Present Illness ED Provider: page ALSTON narrative: Patient has been feeling dizzy with nausea and vomiting for last 5 days started all of a sudden but does have history of vertigo in the past but never like this persistent persistent with feeling off balance is nauseated no vomiting no diarrhea Related Data Home Medications ?Medication ?Instructions ?Recorded ?Confirmed aspirin 81 mg tablet,delayed 81 mg PO DAILY 12/23/19 01/30/20 release glipizide 5 mg tablet 5 mg PO DAILY 12/23/19 01/30/20 metformin 1,000 mg tablet 1,000 mg PO DAILY 12/23/19 01/30/20 Previous Rx's ?Medication ?Instructions ?Recorded ibuprofen 200 mg capsule (Motrin 200 mg PO Q6H PRN pain #20 caps 03/03/20 IB) acetaminophen 500 mg tablet 500 mg PO Q6H PRN pain or fever 10/16/20 (Tylenol Extra Strength) #20 tabs cyclobenzaprine 5 mg tablet 5 mg PO Q8H PRN pain (scale score 10/16/20 7-10) 5 days #14 tabs lidocaine 5 % topical patch 1 patch topical DAILY PRN pain #30 10/16/20 (Lidoderm) ea naproxen 500 mg tablet 500 mg PO BID PRN pain 10 days #20 10/16/20 tabs prednisone 20 mg tablet 40 mg (2 x 20 mg) PO DAILY 5 days 10/16/20 #10 tabs meclizine 25 mg tablet 25 mg PO TID PRN dizziness #20 tabs 01/08/24 Allergies Allergy/AdvReac Type Severity Reaction Status Date / Time No Known Allergies Allergy Verified 01/08/24 19:47 [No Known Allergies*] Review of Systems Review of Systems: Yes all other systems are reviewed and are negative PMFSH Past Medical History Medical History Back pain Diabetes Social History Social History Alcohol intake: former Smoked in Last 30 Days: No Use of substances other than those prescribed or required for medical reasons: No Advance Directives: No Advance Directives Information Provided: No Physical Exam ED Vital Signs: Vital Signs - 24 hr 01/08/24 19:44 01/08/24 20:38 01/08/24 20:39 Temperature 98.4 F 97.6 F Pulse Rate 82 60 60 Respiratory Rate 16 16 Blood Pressure 162/98 H 133/85 133/85 Pulse Oximetry 98 99 Oxygen Delivery Method Room Air Room Air 01/08/24 20:39 01/08/24 20:39 01/08/24 22:56 Temperature 98.1 F Pulse Rate 66 78 69 Respiratory Rate 16 Blood Pressure 131/93 H 143/95 H 120/72 Pulse Oximetry 98 Oxygen Delivery Method Room Air BMI result Body Mass Index 28.2 Appearance: Alert. Oriented X3. No acute distress. Eyes: PERRLA, No Nystagmus dizziness increases on ambulation and bending down ENT: Pharynx normal. Oral Mucosa moist tympanic membrane intact Neck: Normal inspection. Neck supple. CVS: Normal heart rate and rhythm. Pulses normal. Respiratory: No respiratory distress. Equal air entry bilateral, no wheezing/rales/rhonchi Abdomen: Soft and nontender. Bowel sounds are present, no mass palpable, no CVA tenderness Skin: Skin warm and dry. Normal skin color. Normal skin turgor. Extremities: No lower extremity edema. No calf tenderness Neuro: Oriented X 3. No motor deficit. No cerebellar signs Course Course Course Narrative: RME, this is a rapid medical exam performed by Dequan Benson please refer to primary provider for complete H&P- 68-year-old male presents for evaluation of vomiting and dizziness. He reports he started vomiting Thursday night and then developed dizziness since then. He is able to tolerate some foods. Plan for cardiac workup as well as lipase. He is ambulatory Medications Administered Discontinued Medications Generic Name Dose Route Start Last Admin Trade Name Freq PRN Reason Stop Dose Admin Meclizine HCl 25 mg 01/08/24 21:07 01/08/24 21:17 Meclizine Hcl 25 Mg Tablet PO 01/08/24 21:08 25 mg ONCE ONE Administration Medical Decision Making Medical Decision Making [facility] Narrative: Patient with acute dizziness clinically benign positional vertigo no signs of central nervous system involvement CT head is negative was given meclizine feeling much better will discharge patient home Differential Diagnosis Differential Diagnoses: The differential diagnosis associated with the presentation includes Lab Data MDM Lab Attestation statement: I reviewed the patient's lab results. 01/08/24 20:06 01/08/24 20:06 Labs: Lab Results 01/08/24 Range/Units 20:06 WBC 8.1 (4.8-10.8) X10*3/uL RBC 5.38 (4.60-5.80) X10*6/uL Hgb 16.4 (14.0-18.0) g/dl Hct 47.5 (42.0-52.0) % MCV 88.3 (80.0-98.0) fL MCH 30.5 (27.0-33.0) pg MCHC 34.5 (31.0-36.0) g/dl RDW 12.0 (11.0-16.0) % Plt Count 229 (160-400) X10*3/uL MPV 10.0 (9.4-12.4) fL Immature Gran % (Auto) 0.2 (0.0-0.4) % Neut % (Auto) 52.3 (45-73) % Lymph % (Auto) 31.2 (20-40) % [place] % (Auto) 9.7 (2-11) % Eos % (Auto) 5.9 H (0-4) % Baso % (Auto) 0.7 (0-2) % Lymph # (Auto) 2.5 (1.2-4.9) X10*3/uL [place] # (Auto) 0.8 (0.1-1.2) X10*3/uL Eos # (Auto) 0.5 H (0.0-0.4) X10*3/uL Baso # (Auto) 0.1 (0.0-0.2) X10*3/uL Abs Immat Gran (auto) 0.02 (0.00-0.03) X10*3/uL Absolute Neuts (auto) 4.2 (2.0-8.3) x10*3/uL Absolute Nucleated RBC 0.000 (0.0-0.012) X10*3/uL Nucleated RBC % (auto) 0.0 (0.0-0.2) /100WBC PT 10.8 L (10.9-12.4) SEC INR 0.9 (0.9-1.1) Sodium 141 (135-145) mmol/L Potassium 3.9 (3.3-5.1) mmol/L Chloride 106 (96-108) mmol/L Carbon Dioxide 26 (22-29) mmol/L Anion Gap 13 (12-20) BUN 24 H (9-16) mg/dL Creatinine 0.82 (0.5-1.4) mg/dL Estim Creat Clear Calc 86.5 Estimated GFR > 60 Random Glucose 72 (60-115) mg/dL Calcium 9.7 D (8.4-10.2) mg/dL Total Bilirubin 0.3 (0.0-1.0) mg/dL AST 20 (5-37) U/L ALT 19 (0-40) U/L Alkaline Phosphatase 59 (39-117) U/L Troponin I High Sens < 2.7 (<3.5-35.0) ng/L Total Protein 7.3 (6.5-8.0) g/dL Albumin 4.3 (3.5-5.0) g/dL Lipase 208 H (8-78) U/L Urine Color Yellow Urine Appearance Clear Urine pH 5.0 (5.0-9.0) Ur Specific [place] >= 1.030 H (1.005-1.025) Urine Protein Negative (Neg-Trace) mg/dL Urine Glucose (UA) >=1000 H (Negative) mg/dL Urine Ketones Negative (Negative) mg/dL Urine Blood Negative (Negative) Urine Nitrite Negative (Negative) Ur Leukocyte Esterase Negative (Negative) Urine RBC 0-2 (0-2) /HPF Urine WBC 0-5 (0-5) /HPF Ur Squamous Epith Cells 0-2 (0-2) /HPF Urine Bacteria None Seen (None Seen) Hyaline Casts 0-2 (0-2) /LPF Influenza Type A (PCR) NEGATIVE (Negative) Influenza Type B (PCR) NEGATIVE (Negative) RSV RNA Qual (PCR) NEGATIVE (Negative) SARS-CoV-2 RNA (RT-PCR) NEGATIVE (Negative) Radiology Impression Discussion of test interpretation with radiology: I have reviewed the radiologist's reading. Radiologist Impression: CT/CT head/brain wo IV con IMPRESSION: 1. No evidence of acute intracranial hemorrhage or edematous territorial infarction. 2. Mild underlying microangiopathy and generalized cerebral volume loss. Electronically signed by: Omkar Alas DO 01/09/2024 12:11 AM [facility] Discharge Plan Discharge Clinical Impression: Benign paroxysmal positional vertigo Patient Disposition: Home, Self-Care Instructions: Benign Paroxysmal Positional Vertigo (ED) Additional Instructions: Care and cautions as advised You have mild pancreatitis avoid fried food report to the ER/PCP if worsening of the pain in the abdomen Medicine for dizziness as prescribed Follow up with your PCP Prescriptions: New meclizine 25 mg tablet 25 mg PO TID PRN (Reason: dizziness) Qty: 20 0RF No Action ibuprofen [Motrin IB] 200 mg capsule 200 mg PO Q6H PRN (Reason: pain) Qty: 20 0RF aspirin [Aspir-81] 81 mg Tablet,Delayed Release (Dr/Ec) 81 mg PO DAILY metformin 1,000 mg Tablet 1,000 mg PO DAILY glipizide 5 mg Tablet 5 mg PO DAILY prednisone 20 mg tablet 40 mg PO DAILY 5 Days Qty: 10 0RF acetaminophen [Tylenol Extra Strength] 500 mg tablet 500 mg PO Q6H PRN (Reason: pain or fever) Qty: 20 0RF lidocaine [Lidoderm] 5 % adhesive patch,medicated 1 patch topical DAILY MDD remove after 12 hours PRN (Reason: pain) Qty: 30 0RF Rx Instructions: leave on most painful area for up to 12 hrs naproxen 500 mg tablet 500 mg PO BID PRN (Reason: pain) 10 Days Qty: 20 0RF cyclobenzaprine 5 mg tablet 5 mg PO Q8H PRN (Reason: pain (scale score 7-10)) 5 Days Qty: 14 0RF Print Language: [place]
--- NOTE | 2024-01-08 19:50 | PC.NURSE ---
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
[2024-01-08 20:12] LABS: Basophils Absolute Auto 0.1 X10*3/uL (0.0-0.2); Basophils Percent Auto 0.7 % (0-2); Eosinophils Absolute Auto 0.5 X10*3/uL (0.0-0.4); Eosinophils Percent Auto 5.9 % (0-4); Hematocrit 47.5 % (42.0-52.0); Hemoglobin 16.4 g/dl (14.0-18.0); Imm Gran Abs Auto 0.02 X10*3/uL (0.00-0.03); Imm Gran Pct Auto 0.2 % (0.0-0.4); Lymphocytes Absolute Auto 2.5 X10*3/uL (1.2-4.9); Lymphocytes Percent Auto 31.2 % (20-40); MANUAL DIFF FLAG NO; Mean Corpuscular HGB Conc 34.5 g/dl (31.0-36.0); Mean Corpuscular Hemoglobin 30.5 pg (27.0-33.0); Mean Corpuscular Volume 88.3 fL (80.0-98.0); Monocytes Absolute Auto 0.8 X10*3/uL (0.1-1.2); Monocytes Percent Auto 9.7 % (2-11); Neutrophils Absolute Auto 4.2 x10*3/uL (2.0-8.3); Neutrophils Percent Auto 52.3 % (45-73); Platelet Count 229 X10*3/uL (160-400); Red Blood Count 5.38 X10*6/uL (4.60-5.80); White Blood Count 8.1 X10*3/uL (4.8-10.8)
[2024-01-08 20:13] LABS: Appearance Urine Clear; Color Urine Yellow; Glucose Urine UA >=1000 mg/dL (Negative); Leukocyte Esterase Urine Negative (Negative); Nitrite Urine Negative (Negative); Specific Gravity - Urine >= 1.030 (1.005-1.025); UMIC TRIGGER UACC YES; Urine Blood Negative (Negative); Urine Ketones Negative (Negative); Urine Protein Negative (Neg-Trace)
[2024-01-08 20:17] LABS: INTERNATIONAL NORM RATIO 0.9 (0.9-1.1); Prothrombin Time 10.8 SEC (10.9-12.4)
[2024-01-08 20:18] LABS: Bacteria Urine None Seen (None Seen); Hyaline Casts Urine 0-2 /LPF (0-2); RBC Urine 0-2 /HPF (0-2); Squamous Epithelial Cell Urine 0-2 /HPF (0-2); WBC Urine 0-5 /HPF (0-5)
[2024-01-08 20:37] LABS: Alanine Aminotransferase 19 U/L (0-40); Albumin Level 4.3 g/dL (3.5-5.0); Alkaline Phosphatase 59 U/L (39-117); Anion Gap 13 (12-20); Aspartate Amino Transferase 20 U/L (5-37); Bilirubin Total 0.3 mg/dL (0.0-1.0); Blood Urea Nitrogen 24 mg/dL (9-16); Calcium 9.7 mg/dL (8.4-10.2); Carbon Dioxide 26 mmol/L (22-29); Chloride 106 mmol/L (96-108); Creatinine Clr Calc Pharmacy 86.5; Estimated Glomerular Filt Rate > 60; Glucose Random 72 mg/dL (60-115); Lipase 208 U/L (8-78); Potassium 3.9 mmol/L (3.3-5.1); Sodium 141 mmol/L (135-145); Total Protein 7.3 g/dL (6.5-8.0)
[2024-01-08 20:38] VITALS: BP 133/85; PULSE 60
[2024-01-08 20:39] VITALS: BP 131/93; BP 133/85; BP 143/95; PULSE 60; PULSE 66; PULSE 78; RESP 16; TEMP 36.4; O2SAT 99
[2024-01-08 20:45] LABS: Troponin-I High Sensitivity < 2.7 ng/L (<3.5-35.0)
[2024-01-08 20:50] LABS: Influenza A PCR NEGATIVE (Negative); Influenza B PCR NEGATIVE (Negative); Resp Syncy Virus RNA Qual PCR NEGATIVE (Negative); SARS COV2 PCR INHOUSE NEGATIVE (Negative)
[2024-01-08] MEDS: Meclizine HCl 25 MG TABLET PO (21:17)
--- NOTE | 2024-01-08 21:19 | PC.NURSE ---
Pt a&ox3, no signs of distress. Pt denies pain at this time Pt medicated per mar. Plan of care ongoing.
--- NOTE | 2024-01-08 21:19 | PC.NURSE ---
Family at bedside. Plan of care ongoing.
[2024-01-08 22:56] VITALS: BP 120/72; PULSE 69; RESP 16; TEMP 36.7; O2SAT 98
[2024-01-09 00:25] VITALS: BP 120/72; PULSE 69; RESP 16; TEMP 36.7; O2SAT 98
== END 2024-01-09 00:28 | disposition home or self-care (01) ==
PROVIDERS: Physician Assistant; Emergency Provider Internal Medicine; PCP Internal Medicine
DX: R42 Dizziness and giddiness (principal); R11.2 Nausea with vomiting, unspecified; E11.9 Type 2 diabetes mellitus without complications; I73.9 Peripheral vascular disease, unspecified; Z03.818 Encounter for observation for suspected exposure to other biological agents ruled out; Z79.82 Long term (current) use of aspirin; Z79.84 Long term (current) use of oral hypoglycemic drugs; Z79.899 Other long term (current) drug therapy
CPT/HCPCS: 0241U; 36415; 70450; 80053; 81001; 83690; 84484; 85025; 85610; 93005; 99284; 99285

== ENCOUNTER → 2024-01-08 19:44 | Outpatient (BNV) | payer OTHER, SELFPAY | PROVIDERS: Emergency Provider Internal Medicine; PCP Internal Medicine; Visit Provider Internal Medicine Cardiovascular Disease | DX: R42 Dizziness and giddiness (principal) | CPT/HCPCS: 93010 ==

== ENCOUNTER 2024-01-27 11:06 | Outpatient (REF) | payer OTHER, SELFPAY ==
[2024-01-27 14:26] LABS: Cholesterol 123 mg/dL (<200); HDL Cholesterol 41 mg/dL (>40); LDL Cholesterol Calculated 71 mg/dL (<100); Triglycerides 59 mg/dL (<150)
== END 2024-01-27 11:07 | disposition home or self-care (01) ==
LOC: HO.CHCLDS 11:06
PROVIDERS: Visit Provider Internal Medicine
DX: E11.9 Type 2 diabetes mellitus without complications (principal)
CPT/HCPCS: 36415; 80061